=== PATIENT | male | born 1980 | race Caucasian/White ===

== ENCOUNTER 2016-03-07 10:47 | Emergency (ER) | payer MEDICAID, OTHER ==
[~2016-03-07] VITALS: Ht 177.8 cm; Wt 102.0 kg
[~2016-03-07 10:47] MED LIST: LORA-361 PO
[2016-03-07 10:52] VITALS: BP 134/85; PULSE 85; RESP 14; TEMP 98.3; O2SAT 97
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
[2016-03-07] MEDS ORDERED: CLIN1CAP6 PO (11:26)
--- NOTE | 2016-03-07 11:28 | RADHPO ---
EXAM DATE/TIME: 03/07/2016 11:10 [facility] COMPARISON: CHEST PA & LAT, February 24, 2015, 15:45. INDICATIONS : Cough. MEDICAL HISTORY : None. SURGICAL HISTORY : None. ENCOUNTER: Initial ACUITY: 2 weeks PAIN SCORE: 9/10 LOCATION: Bilateral chest FINDINGS: PA and lateral views of the chest demonstrate the lungs to be symmetrically aerated without evidence of mass, infiltrate or effusion. The cardiomediastinal contours are unremarkable. Osseous structure s are intact. CONCLUSION: Normal examination. No significant change has occurred. Perez Hammond MD on March 07, 2016 at 11:26 Board Certified Radiologist. This report was verified electronically.
== END 2016-03-07 11:36 | disposition home or self-care (01) ==
LOC: PHEFT 10:47
DX: K04.7 Periapical abscess without sinus (principal); J20.9 Acute bronchitis, unspecified; F17.210 Nicotine dependence, cigarettes, uncomplicated
CPT/HCPCS: 71020; 99283

== ENCOUNTER 2017-03-26 18:06 | Emergency (ER) | payer MEDICAID ==
[~2017-03-26 18:06] MED LIST changes: +CLIN300C5 PO; -LORA-361 PO
[2017-03-26 18:08] VITALS: BP 140/69; PULSE 93; RESP 12; TEMP 99.1; O2SAT 97
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
--- NOTE | 2017-03-26 19:17 | RADRPT ---
EXAM DATE/TIME: 03/26/2017 18:45 [facility] COMPARISON: No previous studies available for comparison. INDICATIONS : Coccyx pain. No known injury. Pain steadily increasing for 1 year. MEDICAL HISTORY : None. SURGICAL HISTORY : None. ENCOUNTER: Initial ACUITY: 1 year PAIN SCORE: 3/10 LOCATION: Coccyx FINDINGS: Two-view examination of the sacrum and coccyx demonstrates no evidence of fracture or malalignment. The sacral ala and foramina appear symmetric and intact. The coccyx appears unremarkable. The preve rtebral soft tissues are within normal limits. CONCLUSION: 1. No acute findings. Adam Erazo MD on March 26, 2017 at 19:12 Board Certified Radiologist. This report was verified electronically.
== END 2017-03-26 19:38 | disposition home or self-care (01) ==
LOC: NEPK 18:06
DX: M53.3 Sacrococcygeal disorders, not elsewhere classified (principal); I10 Essential (primary) hypertension; I25.2 Old myocardial infarction; F17.210 Nicotine dependence, cigarettes, uncomplicated; Z88.2 Allergy status to sulfonamides; Z88.0 Allergy status to penicillin; Z88.8 Allergy status to other drugs, medicaments and biological substances
CPT/HCPCS: 72220; 99283

== ENCOUNTER 2017-04-01 07:46 | Emergency (ER) | payer MEDICAID ==
[~2017-04-01] VITALS: Ht 180.3 cm; Wt 104.0 kg
[2017-04-01 07:51] VITALS: BP 140/80; PULSE 95; RESP 16; TEMP 97.9; O2SAT 96
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
[2017-04-01] MEDS ORDERED: OMEP20TA93 PO (08:05)
[2017-04-01] MEDS ORDERED: CLAR10CA3 PO (08:05)
--- NOTE | 2017-04-01 08:13 | RADRPT ---
EXAM DATE/TIME: 04/01/2017 08:04 [facility] COMPARISON: No previous studies available for comparison. INDICATIONS : Cough, fever, chest pain with cough MEDICAL HISTORY : None. SURGICAL HISTORY : None. ENCOUNTER: Initial ACUITY: 2 days PAIN SCORE: 6/10 LOCATION: Bilateral chest FINDINGS: A single view of the chest demonstrates the lungs to be symmetrically aerated without evidence of mas s, infiltrate or effusion. The cardiomediastinal contours are unremarkable. Osseous structures are intact. CONCLUSION: The lungs are clear. Zachary Monte MD on April 01, 2017 at 8:10 Board Certified Radiologist. This report was verified electronically.
[2017-04-01] MEDS ORDERED: ZITHTAB PO (08:59)
--- NOTE | 2017-04-01 15:20 | EKG ---
Date Performed: 04/01/2017 Time Performed: 08:02:14 PTAGE: 36 years EKG: Sinus rhythm Since previous tracing, no significant change noted NORMAL ECG PREVIOUS TRACING : 09/09/2003 20.51 DOCTOR: Andrez Robert Interpretating Date/Time 04/01/2017 15:20:02
== END 2017-04-01 09:06 | disposition home or self-care (01) ==
LOC: PHEFT 07:46
DX: J20.9 Acute bronchitis, unspecified (principal); K21.9 Gastro-esophageal reflux disease without esophagitis; I10 Essential (primary) hypertension; I25.2 Old myocardial infarction; F17.200 Nicotine dependence, unspecified, uncomplicated; Z79.899 Other long term (current) drug therapy; Z88.2 Allergy status to sulfonamides; Z88.6 Allergy status to analgesic agent; Z88.0 Allergy status to penicillin
CPT/HCPCS: 71045; 87804; 93005; 99284